=== PATIENT | male | born 1970 | race Caucasian/White ===

== ENCOUNTER 2022-08-13 10:56 | Emergency (ER) | payer SELFPAY ==
[2022-08-13 12:05] LABS: CARBON DIOXIDE,CO2 23.5 mmol/L (21.0-32.0); POTASSIUM,K 3.5 mmol/L (3.5-5.1)
[2022-08-13] MEDS ORDERED: Aspirin 81 MG Tab.Chew PO ONE (12:30)
== END 2022-08-13 13:02 ==
LOC: MW.ED 10:56
DX: G45.9 Transient cerebral ischemic attack, unspecified (principal)
CPT/HCPCS: 36415; 70450; 80053; 84443; 84484; 85025; 93005; 99284; A9270